=== PATIENT | female | born 1960 ===

== ENCOUNTER 2017-11-05 14:04 | Emergency (ER) | payer OTHER, SELFPAY ==
[2017-11-05 14:11] VITALS: BP 109/67; PULSE 68; RESP 18; TEMP 98; O2SAT 100
--- NOTE | 2017-11-05 14:45 | ED PDOC ---
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 She states she woke up today and was unable to bear weight on the foot, so she came here for further evaluation. No fever, chills, numbness, tingling, or open wounds. Patient has taken Tylenol with temporary improvement of pain, but has not taken any medications for pain over the last few days. PMD: none Past Medical History Reviewed: Historical Data, Nursing Documentation, Vital Signs Vital Signs: Last Vital Signs Temp 98 F 11/05/17 14:07 Pulse 68 11/05/17 14:07 Resp 18 11/05/17 14:07 BP 109/67 11/05/17 14:07 Pulse Ox 100 11/05/17 15:46 - Medical History Other PMH: poor historian - takes meds daily but does not know names of meds - Surgical History Other surgeries: Clot retrieval in the left lower extremity - Family History Family History: States: No Known Family Hx - Living Arrangements Living Arrangements: With Family - Social History Current smoker - smoking cessation education provided: No Alcohol: None Drugs: Denies - Home Medications Home Medications: Ambulatory Orders Medication Instructions Recorded Acetaminophen [Tylenol Extra 1,000 mg PO TID #30 tablet 07/03/16 Strength] Ibuprofen [Motrin] 600 mg PO Q6 PRN #15 tab 11/05/17 - Allergies Allergies/Adverse Reactions: Allergies Allergy/AdvReac Type Severity Reaction Status Date / Time No Known Allergies Allergy Unverified 02/15/16 11:46 Review of Systems ROS Statement: Except As Marked, All Systems Reviewed And Found Negative Constitutional: Negative for: Fever, Chills Musculoskeletal: Positive for: Foot Pain (left foot pain) Physical Exam - Reviewed Nursing Documentation Reviewed: Yes Vital Signs Reviewed: Yes - Physical Exam Appears: Positive for: Well, Non-toxic, No Acute Distress Head Exam: Positive for: ATRAUMATIC, NORMAL INSPECTION, NORMOCEPHALIC Skin: Positive for: Normal Color. Negative for: Rash Eye Exam: Positive for: Normal appearance Extremity: Positive for: Tenderness (mild tenderness to the plantar aspect of the left foot with dried, calloused skin noted. No open wounds), Other. Negative for: Deformity Neurologic/Psych: Positive for: Alert, Oriented - ECG O2 Sat by Pulse Oximetry: 100 (RA) Pulse Ox Interpretation: Normal - Other Rad Left foot x-ray X-Ray: Interpreted by Me, Viewed By Me X-Ray Interpretation: arthritic changes, no fx, no dislocation Medical Decision Making Medical Decision Making: Initial Impression: 57 year old with chronic left foot pain Time: 14:41 Plan: * Motrin 600 mg PO * X-ray of left foot Patient is aware of x-ray results, all questions answered. Rx motrin given. Farshad wrap declined by patient. Patient was referred to podiatry clinic for follow up. Scribe Attestation: Documented by Dunia Ramirez, acting as a scribe for Marci Wyman PA-C Provider Scribe Attestation: All medical record entries made by the Scribe were at my direction and personally dictated by me. I have reviewed the chart and agree that the record accurately reflects my personal performance of the history, physical exam, medical decision making, and the department course for this patient. I have also personally directed, reviewed, and agree with the discharge instructions and disposition. Disposition - Clinical Impression Clinical Impression: Chronic foot pain - Patient ED Disposition Is Patient to be Admitted: No Counseled Patient/Family Regarding: Studies Performed, Diagnosis, Need For Followup, Rx Given - Disposition Referrals: Podiatry Clinic [Outside] Disposition: Routine/Home Disposition Time: 16:18 Condition: STABLE Additional Instructions: Take rx meds as directed. FOLLOW UP WITH [facility] Prescriptions: Ibuprofen [Motrin] 600 mg PO Q6 PRN #15 tab PRN Reason: Pain, Moderate (4-7) Instructions: Chronic Pain, Foot Sprain (DC) Forms: [employer] (Yoruba) Print Language: CITIZEN OF [place]
--- NOTE | 2017-11-05 16:51 | RAD ---
PROCEDURE: Left Foot Radiographs. HISTORY: Plantar Pain. No history of recent/ related trauma provided COMPARISON: None. FINDINGS: BONES: Osteopenia, the no acute fractures. JOINTS: Osteoarthritic, erosive changes 5th metatarsal phalangeal joint. Moderate hallux valgus deformity. Multiple hammertoe deformities. SOFT TISSUES: Normal. OTHER FINDINGS: None. IMPRESSION: No acute findings related to/accounting for the clinical presentation. Concordant results with the preliminary interpretation rendered by the emergency department physician procedure.
== END 2017-11-05 16:58 | disposition home or self-care (01) ==
LOC: H.ER 14:04
DX: M79.672 Pain in left foot (principal); G89.29 Other chronic pain

== ENCOUNTER 2017-12-28 11:04 | Inpatient (IN) | payer OTHER, SELFPAY ==
[2017-12-28 11:18] VITALS: BMI 28.7
[2017-12-28] MEDS ORDERED: Iohexol 240 (50 ml) PO ONE (11:35)
[2017-12-28] MEDS ORDERED: Sodium Chloride 0.9% 1,000 ML IV STA (11:35)
[2017-12-28 12:15] LABS: BASO # 0.1 K/uL (0.0-0.2); BASO % 0.7 % (0.0-2.0); EOS % 0.5 % (0.0-4.0); HEMOGLOBIN 14.9 g/dL (12.0-16.0); LYMPH # 1.1 K/uL (1.0-4.3); LYMPH % 13.6 % (20.0-40.0); MEAN CORPUSCULAR HEMOGLOBIN 28.8 pg (27.0-31.0); MEAN CORPUSCULAR HGB CONC 33.3 g/dL (33.0-37.0); MEAN PLATELET VOLUME 7.2 fl (7.2-11.7); MONO # 0.4 K/uL (0.0-0.8); MONO % 4.5 % (0.0-10.0); NEUT # 6.3 K/uL (1.8-7.0); NEUT % 80.7 % (50.0-75.0); NRBC % 0.1 % (0.0-0.0); RBC 5.19 Mil/uL (3.80-5.20); RED CELL DISTRIBUTION WIDTH 13.9 % (11.5-14.5); WHITE BLOOD COUNT 7.8 K/uL (4.8-10.8)
[2017-12-28 12:21] LABS: ALB/GLOB RATIO 1.1 (1.0-2.1); ALBUMIN 4.2 g/dL (3.5-5.0); ALT/SGPT 47 U/L (9-52); AST/SGOT 44 U/L (14-36); BLOOD UREA NITROGEN 24 mg/dl (7-17); CALCIUM 9.4 mg/dL (8.4-10.2); GFR AFRICAN-AMERICAN > 60; GFR NON-AFRICAN AMERICAN > 60; LIPASE 168 U/L (23-300)
[2017-12-28 12:24] LABS: MEAN CELL VOLUME 86.5 fl (81.0-99.0)
--- NOTE | 2017-12-28 13:51 | ED PDOC ---
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 denies: Vomiting, Diarrhea Exacerbating Factors: None Alleviating Factors: None Last Bowel Movement: Today Additional Complaint(s): 57yo female hx CVA w/ left sided weakness presents w family c/o upper abdominal pain and concern she took too much medication- states she took her normal "stroke medication" (ticlopidine?) and then thinks she took ranitidine and a self-prescribed antibiotic believed to be ampicillin. Family did not bring medications to ER. Further history obtained from FP service regarding her medications and history as [facility] patient. Patient/family also note several episodes vomiting, deny diarrhea, fever, cough, SOB or chest pain. Past Medical History Reviewed: Historical Data, Nursing Documentation, Vital Signs Vital Signs: Last Vital Signs Temp 97.6 F 12/28/17 11:18 Pulse 65 12/28/17 14:53 Resp 20 12/28/17 11:18 BP 132/81 12/28/17 11:18 Pulse Ox 98 12/28/17 14:53 - Medical History PMH: CVA - Surgical History Other surgeries: L leg vein?; deny abdominal surgeries - Family History Family History: States: Unknown Family Hx - Living Arrangements Living Arrangements: With Family - Social History Current smoker - smoking cessation education provided: No - Immunization History Hx Tetanus Toxoid Vaccination: No Hx Influenza Vaccination: No Hx Pneumococcal Vaccination: No - Home Medications Home Medications: Ambulatory Orders Medication Instructions Recorded Ticlopidine 250 mg PO DAILY 12/28/17 - Allergies Allergies/Adverse Reactions: Allergies Allergy/AdvReac Type Severity Reaction Status Date / Time No Known Allergies Allergy Unverified 02/15/16 11:46 Review of Systems Constitutional: Positive for: Weakness, Malaise. Negative for: Fever, Chills ENT: Negative for: Nose Discharge, Throat Pain Cardiovascular: Negative for: Chest Pain, Palpitations Respiratory: Negative for: Cough Gastrointestinal: Positive for: Nausea, Vomiting, Abdominal Pain. Negative for : Diarrhea, Melena, Hematochezia Genitourinary Female: Negative for: Dysuria Musculoskeletal: Negative for: Neck Pain, Back Pain Neurological: Positive for: Dizziness. Negative for: Weakness, Numbness, Headache Psych: Negative for: Suicidal ideation Physical Exam - Reviewed Nursing Documentation Reviewed: Yes Vital Signs Reviewed: Yes - Physical Exam Appears: Positive for: Uncomfortable Head Exam: Positive for: ATRAUMATIC, NORMAL INSPECTION, NORMOCEPHALIC Skin: Positive for: Normal Color, Warm, DRY Eye Exam: Positive for: EOMI, Normal appearance, PERRL ENT: Positive for: Normal ENT Inspection Neck: Positive for: Normal, Painless ROM Cardiovascular/Chest: Positive for: Regular Rate, Rhythm Respiratory: Positive for: CNT, Normal Breath Sounds Gastrointestinal/Abdominal: Positive for: Soft, Tenderness (+epigastric mild tenderness). Negative for: Distended, Guarding, Rebound Back: Positive for: Normal Inspection Extremity: Positive for: Pedal Edema (R>L), Swelling Neurologic/Psych: Positive for: Alert, Oriented, Motor/Sensory Deficits ( chronic L sided weakness) - Laboratory Results Result Diagrams: 12/28/17 12:02 12/28/17 12:02 - ECG ECG: Positive for: Interpreted By [facility] ECG Rhythm: Positive for: Sinus Rhythm, Nonspecific Changes Rate: 65 O2 Sat by Pulse Oximetry: 98 Pulse Ox Interpretation: Normal - Radiology X-Ray: Interpreted by [facility] X-Ray Interpretation: No Acute Disease Medical Decision Making Medical Decision Making: history is limited as both patient and family are poor historians with limited understanding of her medications or medical history workup for abdominal pain was initiated, r/o biliary colic, gastric ulcer, GI bleed, pancreatitis, or other abdominal pathology IVF, pain medicine and antiemetic initiated labs reviewed and clinically unremarkable Accession No. : [id number] Patient Name / ID : [id number] / [id number] Exam Date : 12/28/2017 14:14:35 ( Approved ) Study Comment : Sex / Age : F / 57Y Creator : Shane Dumont MD Dictator : Shane Dumont MD Laundry Attendant : Handle Turner : Shane Dumont MD Approver2 : Report Date : 12/28/2017 14:43:23 My Comment : PROCEDURE: CT Abdomen and Pelvis with contrast HISTORY: abdominal pain COMPARISON: Cysts as discussed above. TECHNIQUE: Contrast dose: Omnipaque 300, 100 cc Radiation dose: Total exam DLP = 1109.72 mGy-cm. This CT exam was performed using one or more of the following dose reduction techniques: Automated exposure control, adjustment of the mA and/or kV according to patient size, and/or use of iterative reconstruction technique. FINDINGS: LOWER THORAX: Limited bilateral basilar dependent atelectasis identified. There is also cardiomegaly. Tiny hiatal hernia is identified. LIVER: A few scattered granulomata are seen at the dome of the liver. Diminished attenuation throughout the liver suggests hepatic steatosis. No intrahepatic biliary duct dilatation evident. GALLBLADDER AND BILE DUCTS: Gallbladder is distended with questionable pericholecystic fluid and trace cholelithiasis. Clinically correlate for potential cholecystitis. Common bile duct caliber appears normal. PANCREAS: Unremarkable. No gross lesion or ductal dilatation. SPLEEN: Unremarkable. ADRENALS: Unremarkable. No mass. KIDNEYS AND URETERS: There are few cortical defect identified at the left greater the right kidney suggestive of chronic infarction. No obstructive uropathy or solid parenchymal mass bilaterally. No radiodense urolithiasis grossly evident or perinephric reaction/ fluid collection bilaterally. VASCULATURE: Unremarkable. No aortic aneurysm. BOWEL: Prominent fecal loading is seen obscuring the ascending colon with remainder of the large bowel of diminished caliber. . No obstruction. No gross mural thickening. APPENDIX: Normal appendix. PERITONEUM: Unremarkable. No free fluid. No free air. LYMPH NODES: Unremarkable. No enlarged lymph nodes. BLADDER: Unremarkable. REPRODUCTIVE: Bilateral adnexal cysts are identified with a right sided cyst measuring 2.3 x 2.2 cm and the left-sided cysts measuring 2.5 x 2.3 cm. BONES: No acute fracture. OTHER FINDINGS: None. IMPRESSION: Findings suspicious for potential acute subacute cholecystitis though not dramatic. He please see discussion above. No choledocholithiasis or biliary tree dilatation other than distended gallbladder. Limited hepatic steatosis. Scattered hepatic granulomata occasionally appreciated near the dome. Bilateral adnexal cysts under 3 cm size in each case. Will obtain US GB and admit for surgical evaluation D/w surgery physical education aide Dr Apolonia Machuca US ordered pending at time admission Disposition - Clinical Impression Clinical Impression: Cholecystitis - Patient ED Disposition Is Patient to be Admitted: Yes Counseled Patient/Family Regarding: Studies Performed - Disposition Disposition: Routine/Home Disposition Time: 14:25 Condition: FAIR - Pt Status Changed To: Hospital Disposition Of: Inpatient - Admit Certification Admit to Inpatient:: After my assessment, the patient will require hospitalization for at least two midnights. This is because of the severity of symptoms shown, intensity of services needed, and/or the medical risk in this patient being treated as an outpatient. - POA Present On Arrival: None
[2017-12-28] MEDS ORDERED: Sodium Chloride 0.9% 100 ML ONE (14:10)
[2017-12-28] MEDS ORDERED: Iohexol 300 100 ML IJ ONE (14:10)
--- NOTE | 2017-12-28 14:42 | RAD ---
HISTORY: SOB COMPARISON: No prior. FINDINGS: LUNGS: No active pulmonary disease. PLEURA: No significant pleural effusion identified, no pneumothorax apparent. CARDIOVASCULAR: Cardiomediastinal silhouette enlarged. OSSEOUS STRUCTURES: Degenerative changes. VISUALIZED UPPER ABDOMEN: Normal. OTHER FINDINGS: None. IMPRESSION: No active disease.
--- NOTE | 2017-12-28 14:44 | CT ---
PROCEDURE: CT Abdomen and Pelvis with contrast HISTORY: abdominal pain COMPARISON: Cysts as discussed above. TECHNIQUE: Contrast dose: Omnipaque 300, 100 cc Radiation dose: Total exam DLP = 1109.72 mGy-cm. This CT exam was performed using one or more of the following dose reduction techniques: Automated exposure control, adjustment of the mA and/or kV according to patient size, and/or use of iterative reconstruction technique. FINDINGS: LOWER THORAX: Limited bilateral basilar dependent atelectasis identified. There is also cardiomegaly. Tiny hiatal hernia is identified. LIVER: A few scattered granulomata are seen at the dome of the liver. Diminished attenuation throughout the liver suggests hepatic steatosis. No intrahepatic biliary duct dilatation evident. GALLBLADDER AND BILE DUCTS: Gallbladder is distended with questionable pericholecystic fluid and trace cholelithiasis. Clinically correlate for potential cholecystitis. Common bile duct caliber appears normal. PANCREAS: Unremarkable. No gross lesion or ductal dilatation. SPLEEN: Unremarkable. ADRENALS: Unremarkable. No mass. KIDNEYS AND URETERS: There are few cortical defect identified at the left greater the right kidney suggestive of chronic infarction. No obstructive uropathy or solid parenchymal mass bilaterally. No radiodense urolithiasis grossly evident or perinephric reaction/ fluid collection bilaterally. VASCULATURE: Unremarkable. No aortic aneurysm. BOWEL: Prominent fecal loading is seen obscuring the ascending colon with remainder of the large bowel of diminished caliber. . No obstruction. No gross mural thickening. APPENDIX: Normal appendix. PERITONEUM: Unremarkable. No free fluid. No free air. LYMPH NODES: Unremarkable. No enlarged lymph nodes. BLADDER: Unremarkable. REPRODUCTIVE: Bilateral adnexal cysts are identified with a right sided cyst measuring 2.3 x 2.2 cm and the left-sided cysts measuring 2.5 x 2.3 cm. BONES: No acute fracture. OTHER FINDINGS: None. IMPRESSION: Findings suspicious for potential acute subacute cholecystitis though not dramatic. He please see discussion above. No choledocholithiasis or biliary tree dilatation other than distended gallbladder. Limited hepatic steatosis. Scattered hepatic granulomata occasionally appreciated near the dome. Bilateral adnexal cysts under 3 cm size in each case.
[2017-12-28] MEDS ORDERED: Piperacillin/Tazobact 4.5 GM in Sodium Chloride 0.9% 100 ML IVPB STA (14:50)
--- NOTE | 2017-12-28 15:50 | CP.PCM.CON ---
History of Present Illness - History of Present Illness History of Present Illness: General Surgery Consult Note for Dr. Trevino Reason for consult: nausea/vomiting 57 F with PMH that includes s/p CVA with residual left sided weakness, s/p LLE thrombectomy presents to [facility] for complaint of nausea/vomiting. Patient was seen and evaluated in the ED. Daughter was at bedside who supplemented the history. Patient was at home yesterday and developed and episode of NBNB vomiting after taking medication. As per daughter, patient took an antibiotic, pain medication, ranitidine, and multiple pills of her "stroke medication." Patient was not feeling well and decided to take her medication to help. Patient denies any pain. She admits to associated chills. She denies any alleviating or aggrevating factors. Denies any sick contacts or recent illness. Denies fever, chest pain, SOB, abdominal pain, diarrhea, urinary symptoms. PMH: s/p CVA with residual left sided weakness, LLE DVT s/p thrombectomy Meds: As per EMR Allergy: NKDA PSH: thrombectomy FH: Denies Social: former smoker, denies EtOH or illicit drug use, lives with family, walk a little with assistance Review of Systems - Review of Systems All systems: reviewed and no additional remarkable complaints except (as per HPI ) Past Patient History - Infectious Disease Hx of Infectious Diseases: None - Past Social History Smoking Status: Never Smoked - NEUROLOGICAL HX Cerebrovascular Accident: Yes ("9 years ago") - PSYCHIATRIC Hx Substance Use: No - SURGICAL HISTORY Other/Comment: DVT sx x2 - ANESTHESIA Hx Anesthesia: No Meds Allergies/Adverse Reactions: Allergies Allergy/AdvReac Type Severity Reaction Status Date / Time No Known Allergies Allergy Unverified 02/15/16 11:46 Physical Exam - Constitutional Appears: No Acute Distress - Head Exam Head Exam: ATRAUMATIC, NORMOCEPHALIC - Eye Exam Eye Exam: EOMI, Normal appearance Pupil Exam: PERRL - ENT Exam ENT Exam: Mucous Membranes Moist - Respiratory Exam Respiratory Exam: NORMAL BREATHING PATTERN - Cardiovascular Exam Cardiovascular Exam: REGULAR RHYTHM - GI/Abdominal Exam GI & Abdominal Exam: Normal Bowel Sounds, Soft. absent: Distended, Firm, Guarding, Rebound, Rigid, Tenderness Additional comments: (-) Kohli's sign - Extremities Exam Extremities exam: Positive for: normal capillary refill, pedal edema (1+), pedal pulses present. Negative for: calf tenderness - Neurological Exam Neurological exam: Alert - Psychiatric Exam Psychiatric exam: Normal Affect, Normal Mood - Skin Skin Exam: Dry, Intact, Normal Color, Warm Results - Vital Signs Recent Vital Signs: Last Vital Signs Temp 97.6 F 12/28/17 11:18 Pulse 65 12/28/17 15:38 Resp 20 12/28/17 11:18 BP 132/81 12/28/17 11:18 Pulse Ox 98 12/28/17 15:38 - Labs Result Diagrams: 12/28/17 12:02 12/28/17 12:02 Labs: Laboratory Results - last 24 hr 12/28/17 12/28/17 12:02 12:02 WBC 7.8 RBC 5.19 Hgb 14.9 Hct 44.9 MCV 86.5 D MCH 28.8 MCHC 33.3 RDW 13.9 Plt Count 333 MPV 7.2 Neut % (Auto) 80.7 H Lymph % (Auto) 13.6 L [place] % (Auto) 4.5 Eos % (Auto) 0.5 Baso % (Auto) 0.7 Neut # (Auto) 6.3 Lymph # (Auto) 1.1 [place] # (Auto) 0.4 Eos # (Auto) 0.0 Baso # (Auto) 0.1 Sodium 141 Potassium 4.7 Chloride 101 Carbon Dioxide 27 Anion Gap 18 BUN 24 H Creatinine 0.8 Est GFR ( Amer) > 60 Est GFR (Non-Af Amer) > 60 Random Glucose 113 H Calcium 9.4 Total Bilirubin 0.3 AST 44 H ALT 47 Alkaline Phosphatase 84 Troponin I < 0.0120 Total Protein 8.2 Albumin 4.2 Globulin 4.0 H Albumin/Globulin Ratio 1.1 Lipase 168 Assessment & Plan - Assessment and Plan (Free Text) Assessment: 57F with nausea/vomiting Plan: -NPO -IV fluids -Analgesics/Anti-emetics PRN -f/u ABUS -Discussed with Dr. Uriel Magana PGY1
--- NOTE | 2017-12-28 16:14 | CP.PCM.HP ---
History of Present Illness - History of Present Illness History of Present Illness: 57 yo F pmhx of stroke with residual L sided weakness presents to the ED with history of epigastric pain s/p nausea and vomiting. She reports that at 3 AM she woke up and vomited x 1 that was yellow mucous. Denies hematemasis. Reports waking up again and hour later with epigastric discomfort. Localized, and likely 2/2 vomiting. Pt reported the discomfort was intermittent and resolved. The discomfort returned and was more intense. She was brought in with her daughter and mother. She denies prior history. Denies recent illness. Reports last meal was last night consisting of peanut butter. Daughter reports mom has been drinking Amoxicillin, not prescribed, to avoid illness. Denies CP/SOB, current N/V, or diarrhea Due to hx of stroke affecting ambulation, pt is wheelchair bound. PMD: Dr. Mccord Podiatry: Dr. Gordon last visit 11/16/2017: ordered LLE: EMG/NCV/MRI pmhx: stroke 15 years ago with residual L sided weakness, L osteochondritis dessicans of foot, Psurghx: L lower extremity s/p stroke: possible DVT/thrombectomy Famhx: none Soc: lives with daughter, previous smoker (15+), denies: etoh, illicit drugs Rx: Ticlopidine, Ibuprophen NKDA ED course: Pt was interviewed with surgical assistant certified Misael Vitals: 97.6F, 132/81, 64 bpm, 99 RA Fluid: NS 1L bolus CBC: 7.8>14.9/44.9<333 CMP: 141/4.7//101/27//24/0.8<113 Lipase: 168 Troponin: neg x1 CT: Abdo w/ contrast: Suspect potential for acute subacute cholecystitis. No choledocholithiasis or biliary tree dilation other than distended gallbladder. Limited Hepatic steatosis, scattered hepatic granulomata; BL adnexal cysts US: Abdo: Equivical for acute cholecystitis; consider future eval with radionucleotide hepatobiliary scan CXR: no active disease EKG: NSR, pending official read Rx: Zofran x2; Abx: Zosyn 4.5 gm x1 Present on Admission - Present on Admission Any Indicators Present on Admission: Yes History of DVT/PE: Yes History of Uncontrolled Diabetes: No Review of Systems - Constitutional Constitutional: As Per HPI - Cardiovascular Cardiovascular: absent: Chest Pain - Respiratory Respiratory: absent: Cough, Dyspnea - Gastrointestinal Gastrointestinal: absent: Abdominal Pain Past Patient History - Infectious Disease Hx of Infectious Diseases: None - Past Medical History & Family History Past Medical History?: Yes - Past Social History Smoking Status: Former Smoker Alcohol: None Drugs: Denies - CARDIAC Hx Cardiac Disorders: No - PULMONARY Hx Respiratory Disorders: No - NEUROLOGICAL HX Cerebrovascular Accident: Yes ("15 years ago") - HEENT Hx HEENT Problems: No - RENAL Hx Chronic Kidney Disease: No - ENDOCRINE/METABOLIC Hx Endocrine Disorders: No - HEMATOLOGICAL/ONCOLOGICAL Hx Blood Disorders: No - INTEGUMENTARY Hx Dermatological Problems: No - MUSCULOSKELETAL/RHEUMATOLOGICAL Hx Musculoskeletal Disorders: No - GASTROINTESTINAL Hx Gastrointestinal Disorders: No - GENITOURINARY/GYNECOLOGICAL Hx Genitourinary Disorders: No - PSYCHIATRIC Hx Psychophysiologic Disorder: No Hx Substance Use: No - SURGICAL HISTORY Hx Surgeries: Yes Other/Comment: DVT sx x2 - ANESTHESIA Hx Anesthesia: No Meds Allergies/Adverse Reactions: Allergies Allergy/AdvReac Type Severity Reaction Status Date / Time No Known Allergies Allergy Unverified 02/15/16 11:46 Physical Exam - Eye Exam Eye Exam: EOMI - Respiratory Exam Respiratory Exam: Clear to Auscultation Bilateral, NORMAL BREATHING PATTERN. absent: Wheezes - Cardiovascular Exam Cardiovascular Exam: +S1, +S2 - GI/Abdominal Exam GI & Abdominal Exam: Normal Bowel Sounds, Soft. absent: Tenderness - Extremities Exam Extremities exam: Negative for: calf tenderness Additional comments: Limited ROM. wheelchair use. L lower extremity edema, decreased dorsalis pedis pulse - Neurological Exam Neurological exam: Alert, CN II-XII Intact, Oriented x3 - Psychiatric Exam Psychiatric exam: Normal Affect, Normal Mood Results - Vital Signs Recent Vital Signs: Last Vital Signs Temp 97.6 F 12/28/17 11:18 Pulse 65 12/28/17 15:38 Resp 20 12/28/17 11:18 BP 132/81 12/28/17 11:18 Pulse Ox 98 12/28/17 15:38 - Labs Result Diagrams: 12/28/17 12:02 12/28/17 12:02 Labs: Laboratory Results - last 24 hr 12/28/17 12/28/17 12:02 12:02 WBC 7.8 RBC 5.19 Hgb 14.9 Hct 44.9 MCV 86.5 D MCH 28.8 MCHC 33.3 RDW 13.9 Plt Count 333 MPV 7.2 Neut % (Auto) 80.7 H Lymph % (Auto) 13.6 L [place] % (Auto) 4.5 Eos % (Auto) 0.5 Baso % (Auto) 0.7 Neut # (Auto) 6.3 Lymph # (Auto) 1.1 [place] # (Auto) 0.4 Eos # (Auto) 0.0 Baso # (Auto) 0.1 Sodium 141 Potassium 4.7 Chloride 101 Carbon Dioxide 27 Anion Gap 18 BUN 24 H Creatinine 0.8 Est GFR ( Amer) > 60 Est GFR (Non-Af Amer) > 60 Random Glucose 113 H Calcium 9.4 Total Bilirubin 0.3 AST 44 H ALT 47 Alkaline Phosphatase 84 Troponin I < 0.0120 Total Protein 8.2 Albumin 4.2 Globulin 4.0 H Albumin/Globulin Ratio 1.1 Lipase 168 Assessment & Plan - Assessment and Plan (Free Text) Assessment: 57 yo F pmhx of stroke with residual L sided weakness presents to the ED with history of epigastric pain s/p nausea and vomiting. Plan: Acute Cholecystitis -hx of epigastric pain with N/V -afebrile, no leukocytosis -CT: Abdo w/ contrast: Suspect potential for acute subacute cholecystitis. No choledocholithiasis or biliary tree dilation other than distended gallbladder. Limited Hepatic steatosis, scattered hepatic granulomata; BL adnexal cysts -US: Abdo: Equivical for acute cholecystitis; consider future eval with radionucleotide hepatobiliary scan -Surgery consulted by ER attending: Dr. Trevino: recommendations appreciated -s/p 1 L NS; continue with 1L at 100 mls/hr -Lipase: 168; Troponin: neg x1 -Nausea: rx: s/p Zofran x2; c/w Zofran prn -Abx: s/p Zosyn 4.5 gm x1 in ER; continue for prophylaxis of intra-abdominal infections L lower extremity Osteochondritis dissecans -last appt with podiatry in clinic 11/16/2017; Dr. Grady -was given options for surgical procedures: studies: LLE EMG/NCV/MRI/WB ankle XR -Dorsalis pedis 1+ -consider consulting Podiatry DVT prophylaxis -SCDs -CI to lovenox: possible surgery Diet -NPO
--- NOTE | 2017-12-28 17:17 | US ---
HISTORY: RUQ r/o cholecystitis COMPARISON: CT abdomen/ pelvis 12/28/2017 TECHNIQUE: Sonographic evaluation of the right upper quadrant of the abdomen. FINDINGS: LIVER: Measures 13.2 cm in length. Normal echogenicity of the liver parenchyma. No mass. No intrahepatic bile duct dilatation. Punctate calcifications in the right hepatic lobe consistent with old calcified granulomas as demonstrated on CT examination of the same date. GALLBLADDER: Cholelithiasis. Thickened wall. Pericholecystic fluid. Negative sonographic Kohli sign. Findings equivocal for cholecystitis. COMMON BILE DUCT: Measures 5 mm. No stones. No dilatation. PANCREAS: Unremarkable as visualized. No mass. No ductal dilatation. RIGHT KIDNEY: Measures 10.3 cm in length. Normal echogenicity. No calculus, mass, or hydronephrosis. AORTA: No aneurysmal dilatation. IVC: Unremarkable. OTHER FINDINGS: None . IMPRESSION: Cholelithiasis with mural thickening of the gallbladder and pericholecystic fluid. Equivocal findings for acute cholecystitis. Consider further evaluation with radionuclide hepatobiliary scan if clinically warranted. Old calcified hepatic granulomas.
[2017-12-28] MEDS: Pantoprazole 40 mg EC Tab PO SCH (18:10)
[2017-12-28] MEDS: Sodium Chloride 0.9% 1,000 ML IV SCH (18:11)
[2017-12-28 19:15] LABS: PARTIAL THROMBOPLASTIN TIME 20.6 Seconds (25.6-37.1); PROTHROMBIN TIME 11.6 Seconds (9.8-13.1)
[2017-12-29] MEDS: Piperacillin/Tazobact 4.5 GM in Sodium Chloride 0.9% 100 ML IVPB SCH ×3 (01:24→16:15)
[2017-12-29] MEDS: Sodium Chloride 0.9% 1,000 ML IV SCH ×4 (05:04→14:14)
[2017-12-29] MEDS: Pantoprazole 40 mg EC Tab PO SCH (09:10)
[2017-12-29 12:29] LABS: HEMOGLOBIN 12.8 g/dL (12.0-16.0); MEAN CELL VOLUME 85.9 fl (81.0-99.0); MEAN CORPUSCULAR HEMOGLOBIN 28.5 pg (27.0-31.0); MEAN CORPUSCULAR HGB CONC 33.1 g/dL (33.0-37.0); RBC 4.51 Mil/uL (3.80-5.20); WHITE BLOOD COUNT 5.7 K/uL (4.8-10.8)
--- NOTE | 2017-12-29 12:40 | CARD ---
APPROVED REPORT EKG Measurement Heart [id number] <Conclusion> Normal sinus rhythm Possible Left atrial enlargement Borderline ECG artefact present
[2017-12-29 12:43] LABS: ALB/GLOB RATIO 0.9 (1.0-2.1); ALBUMIN 3.1 g/dL (3.5-5.0); ALT/SGPT 36 U/L (9-52); AST/SGOT 35 U/L (14-36); BLOOD UREA NITROGEN 15 mg/dl (7-17); CALCIUM 8.1 mg/dL (8.4-10.2); GFR AFRICAN-AMERICAN > 60; GFR NON-AFRICAN AMERICAN > 60
--- NOTE | 2017-12-29 13:43 | CP.PCM.PN ---
Subjective - Date & Time of Evaluation Date of Evaluation: 12/29/17 Time of Evaluation: 09:45 - Subjective Subjective: Pt. seen at bedside lying awake in no distress. Overnight events reviewed. Pt. with no complaints at this time. Objective - Vital Signs/Intake and Output Vital Signs (last 24 hours): Temp Pulse Resp BP Pulse Ox 98 F 59 L 19 111/74 96 12/29/17 08:30 12/29/17 08:30 12/29/17 08:30 12/29/17 08:30 12/29/17 08:30 - Medications Medications: Current Medications Acetaminophen (Tylenol 325mg Tab) 650 mg PO Q6 PRN PRN Reason: Fever >100.4 F Acetaminophen (Tylenol 325mg Tab) 650 mg PO Q6 PRN PRN Reason: Pain, Mild (1-3) Last Admin: 12/28/17 18:09 Dose: 650 mg Sodium Chloride (Sodium Chloride 0.9%) 1,000 mls @ 100 mls/hr IV .Q10H [facility] Last Admin: 12/29/17 13:00 Dose: Not Given Piperacillin Sod/Tazobactam (Sod 4.5 gm/ Sodium Chloride) 100 mls @ 100 mls/hr IVPB Q8 ERNESTO PRN Reason: Protocol Last Admin: 12/29/17 09:09 Dose: 100 mls/hr Ibuprofen (Motrin Tab) 400 mg PO Q6H PRN PRN Reason: Pain, moderate (4-7) Ondansetron HCl (Zofran Inj) 4 mg IVP Q6 PRN PRN Reason: Nausea/Vomiting Pantoprazole Sodium (Protonix Ec Tab) 40 mg PO DAILY [facility] Last Admin: 12/29/17 09:10 Dose: 40 mg - Labs Labs: 12/29/17 11:30 12/29/17 11:30 PT 11.6 Seconds (9.8-13.1) 12/28/17 18:35 INR 1.0 (0.9-1.2) 12/28/17 18:35 APTT 20.6 Seconds (25.6-37.1) L 12/28/17 18:35 - Head Exam Head Exam: ATRAUMATIC, NORMOCEPHALIC - Eye Exam Eye Exam: Normal appearance - ENT Exam ENT Exam: Mucous Membranes Moist - Respiratory Exam Respiratory Exam: Clear to Ausculation Bilateral, NORMAL BREATHING PATTERN - Cardiovascular Exam Cardiovascular Exam: REGULAR RHYTHM, +S1, +S2 - GI/Abdominal Exam GI & Abdominal Exam: Soft. absent: Distended, Tenderness - Neurological Exam Neurological Exam: Alert, Awake, Oriented x3 - Psychiatric Exam Psychiatric exam: Normal Affect, Normal Mood Assessment and Plan - Assessment and Plan (Free Text) Assessment: 57 y.o. female presented to E.R. for for abdominal pain found to have acute cholecystitis now NPO awaiting surgical intervention. Acute Cholecystitis- afebrile overnight 1- NPO 2- I.V. fluids 3- Plan for O.R. as per discussion with surgery resident Dr. Magana DVT prophylaxis 1- SCD Code status 1- Full code
--- NOTE | 2017-12-29 14:47 | RAD ---
HISTORY: pre op COMPARISON: 12/28/2017. FINDINGS: LUNGS: The lungs are well inflated and clear. PLEURA: No significant pleural effusion identified, no pneumothorax apparent. CARDIOVASCULAR: Normal. OSSEOUS STRUCTURES: No significant abnormalities. VISUALIZED UPPER ABDOMEN: Normal. OTHER FINDINGS: None. IMPRESSION: No active pulmonary disease.
[2017-12-30] MEDS: Piperacillin/Tazobact 4.5 GM in Sodium Chloride 0.9% 100 ML IVPB SCH (00:19)
[2017-12-30] MEDS: Sodium Chloride 0.9% 1,000 ML IV SCH ×2 (03:00→08:28)
[2017-12-30 07:35] LABS: HEMOGLOBIN 13.2 g/dL (12.0-16.0); MEAN CELL VOLUME 86.5 fl (81.0-99.0); MEAN CORPUSCULAR HEMOGLOBIN 28.4 pg (27.0-31.0); MEAN CORPUSCULAR HGB CONC 32.8 g/dL (33.0-37.0); RBC 4.64 Mil/uL (3.80-5.20); RED CELL DISTRIBUTION WIDTH 13.7 % (11.5-14.5); WHITE BLOOD COUNT 5.7 K/uL (4.8-10.8)
[2017-12-30] MEDS: Pantoprazole 40 mg EC Tab PO SCH (08:29)
--- NOTE | 2017-12-30 08:41 | CP.PCM.PN ---
Subjective - Date & Time of Evaluation Date of Evaluation: 12/30/17 Time of Evaluation: 08:38 - Subjective Subjective: SURGERY NOTE FOR DR. JARA 57F seen and examined at bedside. No acute events overnight. Patient denies pain , denies nausea/vomiting. She is tolerating regular diet. Objective - Vital Signs/Intake and Output Vital Signs (last 24 hours): Temp Pulse Resp BP Pulse Ox 97.9 F 68 18 106/71 96 12/30/17 07:47 12/30/17 07:47 12/30/17 07:47 12/30/17 07:47 12/30/17 07:47 - Medications Medications: Current Medications Acetaminophen (Tylenol 325mg Tab) 650 mg PO Q6 PRN PRN Reason: Fever >100.4 F Acetaminophen (Tylenol 325mg Tab) 650 mg PO Q6 PRN PRN Reason: Pain, Mild (1-3) Last Admin: 12/28/17 18:09 Dose: 650 mg Enoxaparin Sodium (Lovenox) 40 mg SC DAILY ERNESTO PRN Reason: Protocol Sodium Chloride (Sodium Chloride 0.9%) 1,000 mls @ 100 mls/hr IV .Q10H [facility] Last Admin: 12/30/17 08:28 Dose: 100 mls/hr Piperacillin Sod/Tazobactam (Sod 4.5 gm/ Sodium Chloride) 100 mls @ 100 mls/hr IVPB Q8 ERNESTO PRN Reason: Protocol Last Admin: 12/30/17 08:28 Dose: 100 mls/hr Ibuprofen (Motrin Tab) 400 mg PO Q6H PRN PRN Reason: Pain, moderate (4-7) Ondansetron HCl (Zofran Inj) 4 mg IVP Q6 PRN PRN Reason: Nausea/Vomiting Pantoprazole Sodium (Protonix Ec Tab) 40 mg PO DAILY [facility] Last Admin: 12/30/17 08:29 Dose: 40 mg - Labs Labs: 12/30/17 06:40 12/29/17 11:30 PT 11.6 Seconds (9.8-13.1) 12/28/17 18:35 INR 1.0 (0.9-1.2) 12/28/17 18:35 APTT 20.6 Seconds (25.6-37.1) L 12/28/17 18:35 - Constitutional Appears: Well, Non-toxic, No Acute Distress - Respiratory Exam Respiratory Exam: Clear to Ausculation Bilateral, NORMAL BREATHING PATTERN - Cardiovascular Exam Cardiovascular Exam: REGULAR RHYTHM, +S1, +S2 - GI/Abdominal Exam GI & Abdominal Exam: Soft. absent: Distended, Firm, Guarding, Rigid, Tenderness , Rebound - Extremities Exam Extremities Exam: absent: Pedal Edema, Tenderness - Neurological Exam Neurological Exam: Alert, Awake - Skin Skin Exam: Dry, Intact, Normal Color, Warm Assessment and Plan - Assessment and Plan (Free Text) Assessment: 57F presents with resolved abdominal pain, possibly due to biliary colic Plan: - continue regular diet - avoid fatty foods - recommend Hem/Onc work up for hx of unprovoked DVTs? - Recommond Neurology for hx of stroke. poss PFO? No Surgical intervention. Reconsult as necessary. Thank you. Further recs discuss with Dr. Uriel Courtney, PGY2
[2017-12-30] MEDS ORDERED: Piperacillin/Tazobact 4.5 GM in Sodium Chloride 0.9% 100 ML IVPB SCH (09:00)
[2017-12-30] MEDS ORDERED: Enoxaparin 40 mg Syringe SC SCH (09:00)
--- NOTE | 2017-12-30 10:32 | CP.PCM.PN ---
Subjective - Date & Time of Evaluation Date of Evaluation: 12/30/17 Objective - Vital Signs/Intake and Output Vital Signs (last 24 hours): Temp Pulse Resp BP Pulse Ox 97.9 F 68 18 106/71 96 12/30/17 07:47 12/30/17 07:47 12/30/17 07:47 12/30/17 07:47 12/30/17 07:47 - Medications Medications: Current Medications Acetaminophen (Tylenol 325mg Tab) 650 mg PO Q6 PRN PRN Reason: Fever >100.4 F Acetaminophen (Tylenol 325mg Tab) 650 mg PO Q6 PRN PRN Reason: Pain, Mild (1-3) Last Admin: 12/28/17 18:09 Dose: 650 mg Enoxaparin Sodium (Lovenox) 40 mg SC DAILY ERNESTO PRN Reason: Protocol Sodium Chloride (Sodium Chloride 0.9%) 1,000 mls @ 100 mls/hr IV .Q10H [facility] Last Admin: 12/30/17 08:28 Dose: 100 mls/hr Piperacillin Sod/Tazobactam (Sod 4.5 gm/ Sodium Chloride) 100 mls @ 100 mls/hr IVPB Q8 ERNESTO PRN Reason: Protocol Last Admin: 12/30/17 08:28 Dose: 100 mls/hr Ibuprofen (Motrin Tab) 400 mg PO Q6H PRN PRN Reason: Pain, moderate (4-7) Ondansetron HCl (Zofran Inj) 4 mg IVP Q6 PRN PRN Reason: Nausea/Vomiting Pantoprazole Sodium (Protonix Ec Tab) 40 mg PO DAILY [facility] Last Admin: 12/30/17 08:29 Dose: 40 mg - Labs Labs: 12/30/17 06:40 12/29/17 11:30 PT 11.6 Seconds (9.8-13.1) 12/28/17 18:35 INR 1.0 (0.9-1.2) 12/28/17 18:35 APTT 20.6 Seconds (25.6-37.1) L 12/28/17 18:35
--- NOTE | 2017-12-30 12:52 | CP.PCM.DIS ---
Provider - Provider Date of Admission: 12/28/17 14:53 Attending physician: Tanna Stern MD Time Spent in preparation of Discharge (in minutes): 20 Diagnosis - Discharge Diagnosis (1) Cholecystitis Status: Acute Hospital Course - Lab Results Lab Results: Most Recent Lab Values WBC 5.7 K/uL (4.8-10.8) 12/30/17 06:40 RBC 4.64 Mil/uL (3.80-5.20) 12/30/17 06:40 Hgb 13.2 g/dL (12.0-16.0) 12/30/17 06:40 Hct 40.2 % (34.0-47.0) 12/30/17 06:40 MCV 86.5 fl (81.0-99.0) 12/30/17 06:40 MCH 28.4 pg (27.0-31.0) 12/30/17 06:40 MCHC 32.8 g/dL (33.0-37.0) L 12/30/17 06:40 RDW 13.7 % (11.5-14.5) 12/30/17 06:40 Plt Count 289 K/uL (130-400) 12/30/17 06:40 MPV 7.2 fl (7.2-11.7) 12/28/17 12:02 Neut % (Auto) 80.7 % (50.0-75.0) H 12/28/17 12:02 Lymph % (Auto) 13.6 % (20.0-40.0) L 12/28/17 12:02 [place] % (Auto) 4.5 % (0.0-10.0) 12/28/17 12:02 Eos % (Auto) 0.5 % (0.0-4.0) 12/28/17 12:02 Baso % (Auto) 0.7 % (0.0-2.0) 12/28/17 12:02 Neut # (Auto) 6.3 K/uL (1.8-7.0) 12/28/17 12:02 Lymph # (Auto) 1.1 K/uL (1.0-4.3) 12/28/17 12:02 [place] # (Auto) 0.4 K/uL (0.0-0.8) 12/28/17 12:02 Eos # (Auto) 0.0 K/uL (0.0-0.7) 12/28/17 12:02 Baso # (Auto) 0.1 K/uL (0.0-0.2) 12/28/17 12:02 PT 11.6 Seconds (9.8-13.1) 12/28/17 18:35 INR 1.0 (0.9-1.2) 12/28/17 18:35 APTT 20.6 Seconds (25.6-37.1) L 12/28/17 18:35 Sodium 140 mmol/l (132-148) 12/29/17 11:30 Potassium 3.6 MMOL/L (3.6-5.0) 12/29/17 11:30 Chloride 104 mmol/L (98-107) 12/29/17 11:30 Carbon Dioxide 25 mmol/L (22-30) 12/29/17 11:30 Anion Gap 15 (10-20) 12/29/17 11:30 BUN 15 mg/dl (7-17) 12/29/17 11:30 Creatinine 0.9 mg/dl (0.7-1.2) 12/29/17 11:30 Est GFR ( Amer) > 60 12/29/17 11:30 Est GFR (Non-Af Amer) > 60 12/29/17 11:30 Random Glucose 73 mg/dL (65-105) 12/29/17 11:30 Calcium 8.1 mg/dL (8.4-10.2) L 12/29/17 11:30 Total Bilirubin 0.6 mg/dl (0.2-1.3) 12/29/17 11:30 AST 35 U/L (14-36) 12/29/17 11:30 ALT 36 U/L (9-52) 12/29/17 11:30 Alkaline Phosphatase 62 U/L (38-126) 12/29/17 11:30 Troponin I < 0.0120 ng/mL (0.00-0.120) 12/28/17 12:02 Total Protein 6.4 G/DL (6.3-8.2) 12/29/17 11:30 Albumin 3.1 g/dL (3.5-5.0) L D 12/29/17 11:30 Globulin 3.3 gm/dL (2.2-3.9) 12/29/17 11:30 Albumin/Globulin Ratio 0.9 (1.0-2.1) L 12/29/17 11:30 Lipase 168 U/L (23-300) 12/28/17 12:02 - Hospital Course Hospital Course: 57 y.o. female presented to E.R. for for abdominal pain found to have acute cholecystitis. Stable. Presenting symptoms resolved; no N/V/abdo pain. Surgery seen and no surgical intervention. Consider OP referral to Neurology and heme/ onc. Tolerating PO diet. Discharge Exam - Head Exam Head Exam: ATRAUMATIC, NORMOCEPHALIC - Eye Exam Eye Exam: EOMI - Neck Exam Neck exam: Full Rom - Respiratory Exam Respiratory Exam: Clear to PA & Lateral. absent: Wheezes - Cardiovascular Exam Cardiovascular Exam: +S1, +S2 - GI/Abdominal Exam GI & Abdominal Exam: Normal Bowel Sounds, Soft. absent: Tenderness - Neurological Exam Neurological exam: Alert, CN II-XII Intact, Oriented x3 - Psychiatric Exam Psychiatric exam: Normal Affect, Normal Mood Discharge Plan - Follow Up Plan Condition: FAIR Disposition: HOME/ ROUTINE Instructions: Cholecystitis (DC), Cholecystitis (GEN) Additional Instructions: Please follow up with Primary care provider at [address] [place] [address] in 3-5 days.
[2017-12-30 15:46] VITALS: BP 125/83; PULSE 66; RESP 20; TEMP 98.1; O2SAT 98
== END 2017-12-30 16:58 | disposition home or self-care (01) | DRG 208 ==
LOC: H.ER 11:04 → H.ERHOLD 14:53 → H.MEDSURG1 16:30
PROVIDERS: ADMIT Family Medicine; ATTEND Family Medicine
DX: K81.0 Acute cholecystitis (principal); I69.354 Hemiplegia and hemiparesis following cerebral infarction affecting left non-dominant side; Z86.718 Personal history of other venous thrombosis and embolism; Z87.891 Personal history of nicotine dependence; Z99.3 Dependence on wheelchair; M93.20 Osteochondritis dissecans of unspecified site

== ENCOUNTER 2019-01-20 13:25 | Emergency (ER) | payer SELFPAY ==
[2019-01-20 13:25] VITALS: BMI 28.7
[2019-01-20 13:35] VITALS: BP 124/79; PULSE 72; RESP 18; TEMP 98.5; O2SAT 99
--- NOTE | 2019-01-20 15:00 | ED PDOC ---
HPI: General Adult Time Seen by Provider: 01/20/19 14:02 Chief Complaint (Nursing): Weakness/Neurological Deficit Chief Complaint (Provider): Weakness/Neurological Deficit History Per: Patient, Staff Anesthetist ([id number]) History/Exam Limitations: no limitations Onset/Duration Of Symptoms: Days (x4) Current Symptoms Are (Timing): Still Present Additional Complaint(s): 58 year old female with a history of CVA 20 years ago presents to the ED with generalized left sided pain and discomfort onset x4 days. Patient reports left sided headache, and pain from left eye to left lower back excluding her left arm and leg. She denies taking any medications for pain. Her stroke affected her left side. PMD: Dr. Mccord at the clinic Past Medical History Reviewed: Historical Data, Nursing Documentation, Vital Signs Vital Signs: Last Vital Signs Temp 98.5 F 01/20/19 13:32 Pulse 72 01/20/19 13:32 Resp 18 01/20/19 13:32 BP 124/79 01/20/19 13:32 Pulse Ox 99 01/20/19 13:32 Primary Care Provider: Non [facility] Provider, - Medical History PMH: CVA, HTN Denies: Chronic Kidney Disease - Family History Family History: States: Unknown Family Hx - Immunization History Hx Tetanus Toxoid Vaccination: No Hx Influenza Vaccination: No Hx Pneumococcal Vaccination: No - Home Medications Home Medications: Ambulatory Orders Medication Instructions Recorded Ticlopidine 250 mg PO DAILY 12/28/17 Ibuprofen [Motrin Tab] 400 mg PO Q6H PRN tab 12/30/17 Pregabalin [Lyrica] 75 mg PO BID #20 cap 01/20/19 - Allergies Allergies/Adverse Reactions: Allergies Allergy/AdvReac Type Severity Reaction Status Date / Time No Known Allergies Allergy Unverified 01/20/19 13:35 Review of Systems ROS Statement: Except As Marked, All Systems Reviewed And Found Negative Musculoskeletal: Positive for: Other (generalized pain from left eye to lower back) Neurological: Positive for: Headache (left) Physical Exam - Reviewed Nursing Documentation Reviewed: Yes Vital Signs Reviewed: Yes - Physical Exam Appears: Positive for: Non-toxic, No Acute Distress Head Exam: Positive for: ATRAUMATIC, NORMOCEPHALIC Skin: Positive for: Normal Color, Warm, Dry Eye Exam: Positive for: Normal appearance, EOMI, PERRL ENT: Positive for: Other (neck tenderness) Cardiovascular/Chest: Positive for: Regular Rate, Rhythm. Negative for: Murmur Respiratory: Positive for: Normal Breath Sounds. Negative for: Respiratory Distress Gastrointestinal/Abdominal: Positive for: Normal Exam, Soft. Negative for: T enderness Back: Positive for: Other (left lower tenderness) Extremity: Positive for: Normal ROM (upper and lower). Negative for: Pedal Edema, Deformity Neurological/Psych: Positive for: Awake, Alert, Oriented (x3) - Laboratory Results Result Diagrams: 01/20/19 15:00 01/20/19 15:00 - ECG O2 Sat by Pulse Oximetry: 99 (RA) Pulse Ox Interpretation: Normal Medical Decision Making Medical Decision Making: Time: 1502 Plan: --CT head w/o contrast --CT Maxillofacial --EKG --CMP --CBC --PTT --PT/INR 17:[address] Landis, recommends Lyrica 75 mg bid, then after one week 75 mg AM and 150 mg PM. Scribe Attestation: Documented by Deanna Be, acting as a scribe for Neha Salamanca MD. Provider Scribe Attestation: All medical record entries made by the Scribe were at my direction and personally dictated by me. I have reviewed the chart and agree that the record a ccurately reflects my personal performance of the history, physical exam, medical decision making, and the department course for this patient. I have also personally directed, reviewed, and agree with the discharge instructions and disposition. Disposition - Clinical Impression Clinical Impression: Trigeminal neuralgia of left side of face - Disposition Referrals: Shanthi Landis MD [Medical Doctor] - [facility] [place] [Outside] Disposition: Routine/Home Disposition Time: 17:51 Condition: STABLE Prescriptions: Pregabalin [Lyrica] 75 mg PO BID #20 cap Instructions: Trigeminal Neuralgia Forms: [facility] (Kinyarwanda) Print Language: KHMER
[2019-01-20 15:32] LABS: BASO # 0.1 K/uL (0.0-0.2); EOS # 0.1 K/uL (0.0-0.7); EOS % 2.8 % (0.0-4.0); HEMOGLOBIN 14.2 g/dL (12.0-16.0); LYMPH # 1.6 K/uL (1.0-4.3); LYMPH % 31.4 % (20.0-40.0); MEAN CELL VOLUME 88.1 fl (81.0-99.0); MEAN CORPUSCULAR HEMOGLOBIN 28.7 pg (27.0-31.0); MEAN CORPUSCULAR HGB CONC 32.5 g/dL (33.0-37.0); MEAN PLATELET VOLUME 7.1 fl (7.2-11.7); MONO # 0.8 K/uL (0.0-0.8); MONO % 16.3 % (0.0-10.0); NEUT # 2.4 K/uL (1.8-7.0); NEUT % 48.5 % (50.0-75.0); NRBC % 0.1 % (0.0-0.0); RBC 4.95 Mil/uL (3.80-5.20); RED CELL DISTRIBUTION WIDTH 14.5 % (11.5-14.5)
[2019-01-20 15:44] LABS: ALB/GLOB RATIO 1.1 (1.0-2.1); ALBUMIN 3.8 g/dL (3.5-5.0); ALT/SGPT 26 U/L (9-52); AST/SGOT 28 U/L (14-36); BLOOD UREA NITROGEN 19 mg/dl (7-17); CALCIUM 8.5 mg/dL (8.4-10.2); GFR NON-AFRICAN AMERICAN > 60; INR 1.1; PROTHROMBIN TIME 12.8 Seconds (9.8-13.1)
[2019-01-20 15:47] LABS: PARTIAL THROMBOPLASTIN TIME 28.5 Seconds (25.6-37.1)
--- NOTE | 2019-01-20 16:35 | CT ---
Date of service: 01/20/2019 PROCEDURE: CT HEAD WITHOUT CONTRAST. HISTORY: L facial pain COMPARISON: None available. TECHNIQUE: Axial computed tomography images were obtained through the head/brain without intravenous contrast. Radiation dose: Total exam DLP = 835.17 mGy-cm. This CT exam was performed using one or more of the following dose reduction techniques: Automated exposure control, adjustment of the mA and/or kV according to patient size, and/or use of iterative reconstruction technique. FINDINGS: HEMORRHAGE: No intracranial hemorrhage. BRAIN: No mass effect or edema. There is wedge or linear shape low-attenuation area extending from the anterior aspect of the right middle fossa to the right basal ganglia coronal radiata. The differential consideration includes old infarction or injury versus congenital anomaly. Mild volume loss is noted. Mild white matter changes likely represent chronic microvascular ischemic disease. VENTRICLES: Unremarkable. No hydrocephalus. CALVARIUM: Unremarkable. PARANASAL SINUSES: Unremarkable as visualized. No significant inflammatory changes. MASTOID AIR CELLS: Unremarkable as visualized. No inflammatory changes. OTHER FINDINGS: None. IMPRESSION: No evidence of acute intracranial hemorrhage. Linear or wedge shaped low-attenuation defect or encephalomalacia noted at the right cerebral hemisphere extending from the right middle fossa to the coronal radiata and basal ganglia may represent old infarction or injury versus congenital anomaly.
--- NOTE | 2019-01-20 17:43 | CT ---
Date of service: 01/20/2019 PROCEDURE: CT MAXILLOFACIAL BONES WITHOUT CONTRAST HISTORY: L facial pain COMPARISON: None available. TECHNIQUE: Contiguous axial CT images of the maxillofacial bones were obtained. Coronal and sagittal reformats were generated. Radiation dose: Total exam DLP = 706.96 mGy-cm. This CT exam was performed using one or more of the following dose reduction techniques: Automated exposure control, adjustment of the mA and/or kV according to patient size, and/or use of iterative reconstruction technique. FINDINGS: NASAL BONES: Unremarkable. ORBITS: Unremarkable. PARANASAL SINUSES/ MASTOIDS: Clear. MAXILLA: Unremarkable. MANDIBLE/ TEMPOROMANDIBULAR JOINTS: Unremarkable. SKULL BASE: Unremarkable. TEMPORAL BONES: Middle ears and mastoid grossly unremarkable. OTHER FINDINGS: None. IMPRESSION: Unremarkable non contrast enhanced CT of the maxillofacial bones.
--- NOTE | 2019-01-21 17:11 | CARD ---
APPROVED REPORT Date of service: 01/20/2019 EKG Measurement Heart [id number] <Conclusion> Sinus rhythm with premature atrial complexes in a pattern of bigeminy Otherwise normal ECG
== END 2019-01-20 18:00 | disposition home or self-care (01) ==
LOC: H.ER 13:25
DX: G50.0 Trigeminal neuralgia (principal); G93.89 Other specified disorders of brain; I10 Essential (primary) hypertension; Z79.899 Other long term (current) drug therapy; Z86.73 Personal history of transient ischemic attack (TIA), and cerebral infarction without residual deficits